=== PATIENT | female | born 1970 | race Caucasian/White ===

== ENCOUNTER 2017-07-22 17:05 | Observation (INO) | payer OTHER ==
[~2017-07-22] VITALS: Ht 170.2 cm; Wt 75.1 kg
[~2017-07-22 17:05] MED LIST: BIOT10TA PO; COLE1TAB PO; OMEP20TA93 PO; VITATAB43 PO
[2017-07-22 17:09] VITALS: BP 139/89; PULSE 97; RESP 24; TEMP 98.4; O2SAT 100
[2017-07-22] MEDS ORDERED: LIDOCAINE VISCOUS 2% SOLN 15 ML UDC PO ONE (17:15)
[2017-07-22] MEDS ORDERED: HYDROmorphone HCL PF 2 MG/ML VIAL IVS ONE (17:15)
[2017-07-22] MEDS ORDERED: SODIUM CHLOR 0.9% 1000 ML INJ 1,000 ML IV SCH (17:15)
[2017-07-22] MEDS ORDERED: ALUMINUM/MAGNESIUM/SIMETH 30 ML CUP PO ONE (17:15)
[2017-07-22] MEDS ORDERED: FAMOTIDINE 20 MG/2 ML VIAL IV PUSH ONE (17:15)
[2017-07-22] MEDS ORDERED: SODIUM CHLORIDE 0.9% FLUSH 10 ML FLUSH IV FLUSH PRN (17:15)
--- NOTE | 2017-07-22 17:18 | PD ---
HPI Chief Complaint: Abdominal Pain Time Seen by Provider: 17:13 Travel History International Travel<30 days: No Contact w/Intl Traveler<30days: No Traveled to known affect area: No History of Present Illness HPI 38-year-old female complains of epigastric abdominal pain since this morning, about 10 hours. Onset sudden. Patient has history of pancreatitis and believes the same today. She drank alcohol yesterday. Timing constant. Severe. It radiates to the back. It's worse with palpation. She denies fever. PFSH Past Medical History Hx Anticoagulant Therapy: No Diabetes: No Diminished Hearing: No Gastrointestinal Disorders: Yes (IBS) Pancreatitis: Yes ?: Unknown LMP: 06/20/2017 Past Surgical History Cholecystectomy: Yes Tonsillectomy: Yes Social History Alcohol Use: Yes (6PK OR MORE DAILY) Tobacco Use: Yes (1.5PPD) Substance Use: No Allergies-Medications (Allergen,Severity, Reaction): Coded Allergies: No Known Allergies (Unverified Adverse Reaction, Unknown, 07/22/17) Reported Meds & Prescriptions Reported Meds & Active Scripts Active Omeprazole 20 Mg Tab 20 Mg PO DAILY Reported Biotin 10 Mg Tab 10 Mg PO DAILY Vitamin [id number] Acid (Cobalamine Combinations) 500-400 Mcg Tab 1 Tab PO DAILY Colestid (Colestipol HCl) 1 Gm Tab 4 Gm PO BID Review of Systems Except as stated in HPI: all other systems reviewed are Neg General / Constitutional: No: Fever Physical Exam Narrative GENERAL: 46-year-old female pleasant well-nourished well-developed SKIN: Warm and dry. HEAD: Atraumatic. Normocephalic. EYES: Pupils equal and round. No scleral icterus. No injection or drainage. ENT: No nasal bleeding or discharge. Mucous membranes pink and moist. NECK: Trachea midline. No JVD. CARDIOVASCULAR: Regular rate and rhythm. RESPIRATORY: No accessory muscle use. Clear to auscultation. Breath sounds equal bilaterally. GASTROINTESTINAL: Soft. Diffuse nonspecific tenderness with guarding. MUSCULOSKELETAL: Extremities without clubbing, cyanosis, or edema. No obvious deformities. NEUROLOGICAL: Awake and alert. No obvious cranial nerve deficits. Motor grossly within normal limits. Five out of 5 muscle strength in the arms and legs. Normal speech. PSYCHIATRIC: Appropriate mood and affect; insight and judgment normal. Data Data Last Documented VS Vital Signs Date Time Temp Pulse Resp B/P (MAP) Pulse Ox O2 Delivery O2 Flow Rate FiO2 07/22/17 18:34 19 07/22/17 17:54 100 Room Air 07/22/17 17:09 98.4 97 139/89 (106) VS reviewed Orders Orders Complete Blood Count With Diff (07/22/17 17:15) Comprehensive Metabolic Panel (07/22/17 17:15) Lipase (07/22/17 17:15) Ct Abd/Pel W Iv Contrast(Rout) (07/22/17 17:15) Iv Access Insert/Monitor (07/22/17 17:15) Ecg Monitoring (07/22/17 17:15) Oximetry (07/22/17 17:15) Hydromorphone Pf Inj (Dilaudid Pf Inj) (07/22/17 17:15) Sodium Chlor 0.9% 1000 Ml Inj (Ns 1000 M (07/22/17 17:15) Sodium Chloride 0.9% Flush (Ns Flush) (07/22/17 17:15) Famotidine Inj (Pepcid Inj) (07/22/17 17:15) Al-Mag Hy-Si 40-40-4 Mg/Ml Liq (Mag-Al P (07/22/17 17:15) Lidocaine 2% Viscous (Xylocaine 2% Visco (07/22/17 17:15) Alcohol (Ethanol) (07/22/17 17:15) Hydromorphone Pf Inj (Dilaudid Pf Inj) (07/22/17 18:15) Iohexol 350 Inj (Omnipaque 350 Inj) (07/22/17 18:11) Admit Order (Ed Use Only) (07/22/17 ) Vital Signs (Adult) Q4H (07/22/17 18:45) Diet Npo (07/22/17 Dinner) Diet Heart Healthy (07/22/17 Dinner) Activity Bed Rest (07/22/17 18:45) Labs Laboratory Tests Test 07/22/17 17:30 White Blood Count 9.5 TH/MM3 Red Blood Count 4.32 MIL/MM3 Hemoglobin 10.2 GM/DL Hematocrit 32.9 % Mean Corpuscular Volume 76.2 FL Mean Corpuscular Hemoglobin 23.6 PG Mean Corpuscular Hemoglobin Concent 31.0 % Red Cell Distribution Width 16.4 % Platelet Count 403 TH/MM3 Mean Platelet Volume 7.8 FL Neutrophils (%) (Auto) 75.3 % Lymphocytes (%) (Auto) 16.3 % Monocytes (%) (Auto) 7.1 % Eosinophils (%) (Auto) 0.8 % Basophils (%) (Auto) 0.5 % Neutrophils # (Auto) 7.2 TH/MM3 Lymphocytes # (Auto) 1.5 TH/MM3 Monocytes # (Auto) 0.7 TH/MM3 Eosinophils # (Auto) 0.1 TH/MM3 Basophils # (Auto) 0.0 TH/MM3 CBC Comment AUTO DIFF Differential Comment AUTO DIFF CONFIRMED Platelet Estimate NORMAL Platelet Morphology Comment NORMAL Blood Urea Nitrogen 5 MG/DL Creatinine 0.78 MG/DL Random Glucose 99 MG/DL Total Protein 8.3 GM/DL Albumin 4.0 GM/DL Calcium Level 9.5 MG/DL Alkaline Phosphatase 99 U/L Aspartate Amino Transf (AST/SGOT) 33 U/L Alanine Aminotransferase (ALT/SGPT) 25 U/L Total Bilirubin 0.4 MG/DL Sodium Level 135 MEQ/L Potassium Level 4.3 MEQ/L Chloride Level 102 MEQ/L Carbon Dioxide Level 24.9 MEQ/L Anion Gap 8 MEQ/L Estimat Glomerular Filtration Rate 79 ML/MIN Lipase 1075 U/L Ethyl Alcohol Level LESS THAN 3 MG/DL MDM Medical Decision Making Medical Screen Exam Complete: Yes Emergency Medical Condition: Yes Medical Record Reviewed: Yes Differential Diagnosis Constipation, Gastritis, Acute Cholecystitis, Biliary Colic, Pancreatitis, HATHAWAY , Hepatitis, Bowel Obstruction, Cystitis, Mesenteric Ischemia, AAA, Appendicitis , Renal Stone/Hydronephrosis, GERD, perforated viscous Narrative Course CBC & BMP Diagram 07/22/17 17:30 Total Protein 8.3 H, Albumin 4.0, Calcium Level 9.5, Alkaline Phosphatase 99, Aspartate Amino Transf (AST/SGOT) 33, Alanine Aminotransferase (ALT/SGPT) 25, Total Bilirubin 0.4 EtOH 3 Last Impressions Abdomen/Pelvis CT 07/22/17 1039 Signed Impressions: Service Date/Time: Saturday, July 22, 2017 17:57 - CONCLUSION: 1. Intra- and extra hepatic biliary ductal dilatation with previous cholecystectomy. This appears unchanged. 2. Left adrenal nodule, unchanged likely lipid poor adenoma. 3. No acute inflammatory process. Jered Warner MD Admission for pain control, IVF, and antiemetics. Diagnosis Primary Impression: Pancreatitis Qualified Codes: K85.20 - Alcohol induced acute pancreatitis without necrosis or infection Admitting Information Admitting Physician Requests: Admit Amos Patel MD Jul 22, 2017 17:18
[2017-07-22 17:52] LABS: AUTOMATED NEUTROPHIL # 7.2 TH/MM3 (1.8-7.7); BASOPHIL % 0.5 % (0.0-2.0); EOSINOPHIL # 0.1 TH/MM3 (0-0.4); EOSINOPHIL % 0.8 % (0.0-4.0); HEMATOCRIT 32.9 % (35.0-46.0); HEMOGLOBIN 10.2 GM/DL (11.6-15.3); LYMPH % 16.3 % (9.0-44.0); LYMPHOCYTE # 1.5 TH/MM3 (1.0-4.8); MEAN CELL VOLUME 76.2 FL (80.0-100.0); MEAN CORPUSCULAR HEMOGLOBIN 23.6 PG (27.0-34.0); MEAN PLATELET VOLUME 7.8 FL (7.0-11.0); MONO % 7.1 % (0.0-8.0); MONOCYTE # 0.7 TH/MM3 (0-0.9); NEUT % 75.3 % (16.0-70.0); PLATELET COUNT 403 TH/MM3 (150-450); RED BLOOD COUNT 4.32 MIL/MM3 (4.00-5.30); RED CELL DISTRIBUTION WIDTH 16.4 % (11.6-17.2); WHITE BLOOD COUNT 9.5 TH/MM3 (4.0-11.0)
[2017-07-22 17:54] VITALS: RESP 22; O2SAT 100
[2017-07-22 17:59] LABS: CHLORIDE 102 MEQ/L (98-107); SODIUM (NA) 135 MEQ/L (136-145)
[2017-07-22 18:03] LABS: BICARBONATE 24.9 MEQ/L (21.0-32.0); BLOOD UREA NITROGEN 5 MG/DL (7-18); CALCIUM 9.5 MG/DL (8.5-10.1); GLUCOSE,RANDOM 99 MG/DL (74-106); LIPASE 1075 U/L (73-393)
[2017-07-22 18:06] LABS: ALT (GPT) 25 U/L (10-53); AST (GOT) 33 U/L (15-37); CREATININE 0.78 MG/DL (0.50-1.00); GLOMERULAR FILTRATION RATE 79 ML/MIN (>89)
[2017-07-22 18:07] LABS: TOTAL BILIRUBIN ADULT 0.4 MG/DL (0.2-1.0); TOTAL PROTEIN 8.3 GM/DL (6.4-8.2)
[2017-07-22 18:09] LABS: ALKALINE PHOSPHATASE 99 U/L (45-117)
[2017-07-22] MEDS ORDERED: IOHEXOL 350 MG/ML 10 ML VIAL (for RAD DIAG) IVCONTRAST ONE (18:11)
[2017-07-22] MEDS ORDERED: HYDROmorphone HCL PF 2 MG/ML VIAL IV PUSH ONE (18:15)
--- NOTE | 2017-07-22 18:18 | RADRPT ---
EXAM DATE/TIME: 07/22/2017 17:57 [facility] COMPARISON: CT ABDOMEN & PELVIS W CONTRAST, June 15, 2016, 17:28. INDICATIONS : Mid abdominal pain since this morning. IV CONTRAST: 100 cc Omnipaque 350 (iohexol) IV ORAL CONTRAST: No oral contrast ingested. RADIATION DOSE: 10.30 CTDIvol (mGy) MEDICAL HISTORY : Pancreatitis. Irritable bowel syndrome. SURGICAL HISTORY : Tonsillectomy. Cholecystectomy. ENCOUNTER: Initial ACUITY: 1 day PAIN SCALE: 10/10 LOCATION: middle abdomen TECHNIQUE: Volumetric scanning of the abdomen and pelvis was performed. Using automated exposure control and ad justment of the mA and/or kV according to patient size, radiation dose was kept as low as reasonably achievable to obtain optimal diagnostic quality images. DICOM format image data is available electro nically for review and comparison. FINDINGS: LOWER LUNGS: The visualized lower lungs are clear. LIVER: Homogeneous density without lesion. No calcified gallstones. Intra--and extra hepatic biliary ductal dilatation distal common bile duct measures 2.3 cm. Cholecystectomy. SPLEEN: Normal size without lesion. PANCREAS: Within normal limits. KIDNEYS: Normal in size and shape. There is no mass, stone or hydronephrosis. ADRENAL GLANDS: Right adrenal gland within normal limits. Left adrenal nodule again seen. VASCULAR: There is no aortic aneurysm. BOWEL/MESENTERY: The stomach and colon demonstrate no acute abnormality. Fluid filled small bowel loops without obstru ction. There is no free intraperitoneal air or fluid. ABDOMINAL WALL: Within normal limits. RETROPERITONEUM: There is no lymphadenopathy. BLADDER: No wall thickening or mass. REPRODUCTIVE: Heterogeneous appearing uterus. INGUINAL: There is no lymphadenopathy or hernia. MUSCULOSKELETAL: Within normal limits for patient age. CONCLUSION: 1. Intra-and extra hepatic biliary ductal dilatation with previous cholecystectomy. This appears unch anged. 2. Left adrenal nodule, unchanged likely lipid poor adenoma. 3. No acute inflammatory process. Jered Warner MD on July 22, 2017 at 18:12 Board Certified Radiologist. This report was verified electronically.
[2017-07-22 19:01] VITALS: BP 113/61; PULSE 67; RESP 16; O2SAT 99
[2017-07-22] MEDS ORDERED: KETOROLAC TROMETHAMINE 30 MG/ML (IVP) VIAL IVP PRN (19:15)
[2017-07-22] MEDS: LACTATED RINGER'S 1000 ML INJ 1,000 ML IV SCH (19:30)
[2017-07-22] MEDS: ENOXAPARIN SODIUM 40 MG/0.4 ML SYRINGE SQ SCH (19:30)
[2017-07-22] MEDS: ONDANSETRON HCL 4 MG/2 ML VIAL IV PUSH PRN (19:30)
[2017-07-22] MEDS: MORPHINE SULFATE 8 MG/ML INJ IV PUSH PRN ×2 (19:42→22:55)
[2017-07-22 19:45] VITALS: BP 109/61; TEMP 98.9
[2017-07-22 20:00] VITALS: BP 113/64; PULSE 71; RESP 20; TEMP 96.8; O2SAT 97
[2017-07-22] MEDS ORDERED: diphenhydrAMINE HCL 50 MG/ML VIAL IV PUSH ONE (20:00)
[2017-07-22] MEDS ORDERED: PROCHLORPERAZINE INJ 10 MG/2 ML VIAL IV PUSH ONE (20:00)
[2017-07-22] MEDS: SODIUM CHLORIDE 0.9% FLUSH 10 ML FLUSH IV FLUSH SCH (20:34)
[2017-07-23] VITALS: BP 121/81; PULSE 67; RESP 20; TEMP 96.2; O2SAT 98
[2017-07-23] MEDS: ONDANSETRON HCL 4 MG/2 ML VIAL IV PUSH PRN (01:46)
[2017-07-23] MEDS: MORPHINE SULFATE 8 MG/ML INJ IV PUSH PRN ×7 (01:47→21:03)
[2017-07-23] MEDS: LACTATED RINGER'S 1000 ML INJ 1,000 ML IV SCH ×3 (03:10→20:57)
[2017-07-23 08:00] VITALS: BP 110/59; PULSE 71; RESP 16; TEMP 96.7; O2SAT 95
--- NOTE | 2017-07-23 08:21 | HHI.HP ---
[facility] Service [facility] Primary Care Physician No Primary Care Physician Admission Diagnosis Pancreatitis Diagnoses: Chief Complaint: Abdominal pain Travel History International Travel<30 Days: No Contact w/Intl Traveler <30 Da: No Traveled to Known Affected Are: No History of Present Illness This patient is a 46-year-old female with a known history of chronic alcohol dependency was current with abdominal pain for 1 day. Pain is severe and rated 10 out of 10 and improved somewhat with morphine. She's had pancreatic eyes in the past and believes this is a same type of pain. It is in the abdomen radiating to the back worse with palpation. No fevers or chills. There has been some nausea and vomiting associated with it. Patient's been recommended for observation due to acute pancreatitis Review of Systems Constitutional: DENIES: Diaphoretic episodes, Fatigue, Fever, Weight gain, Weight loss, Chills, Dizziness, Change in appetite, Night Sweats Endocrine: DENIES: Abnorml menstrual pattern, Heat/cold intolerance, Polydipsia , Polyuria, Polyphagia Eyes: DENIES: Blurred vision, Diplopia, Eye inflammation, Eye pain, Vision loss , Photosensitivity, Double Vision Ears, nose, mouth, throat: DENIES: Tinnitus, Hearing loss, Vertigo, Nasal discharge, Oral lesions, Throat pain, Hoarseness, Ear Pain, Running Nose, Epistaxis, Sinus Pain, Toothache, Odynophagia Respiratory: DENIES: Apneas, Cough, Snoring, Wheezing, Hemoptysis, Sputum production, Shortness of breath Cardiovascular: DENIES: Chest pain, Palpitations, Syncope, Dyspnea on Exertion , PND, Lower Extremity Edema, Orthopnea, Claudication Gastrointestinal: COMPLAINS OF: Abdominal pain, Diarrhea, Nausea, Vomiting, DENIES: Black stools, Bloody stools, Constipation, Difficulty Swallowing, Anorexia Genitourinary: DENIES: Abnormal vaginal bleeding, Dysmenorrhea, Dyspareunia, Sexual dysfunction, Urinary frequency, Urinary incontinence, Urgency, Hematuria , Dysuria, Nocturia, Vaginal discharge Musculoskeletal: DENIES: Joint pain, Muscle aches, Stiffness, Joint Swelling, Back pain, Neck pain Integumentary: DENIES: Abnormal pigmentation, Pruritus, Rash, Nail changes, Breast masses, Breast skin changes, Nipple discharge Hematologic/lymphatic: DENIES: Bruising, Lymphadenopathy Immunologic/allergic: DENIES: Eczema, Urticaria Neurologic: DENIES: Abnormal gait, Headache, Localized weakness, Paresthesias, Seizures, Speech Problems, Tremor, Poor Balance Psychiatric: DENIES: Anxiety, Confusion, Mood changes, Depression, Hallucinations, Agitation, Suicidal Ideation, Homicidal Ideation, Delusions Except as stated in HPI: all other systems reviewed are Neg Past Family Social History Past Medical History Pancreatitis Irritable bowel syndrome Past Surgical History Gallbladder Reported Medications Reviewed in the EMR, patient takes B-12, Imodium, ibuprofen and biotin Allergies: Coded Allergies: No Known Allergies (Unverified Allergy, Unknown, 07/22/17) Active Ordered Medications Reviewed in the EMR Family History Father's history unknown, mother had lung cancer and from the Social History At least a sixpack of beer daily, 1-1/2 packs echo weekly, lives with her Physical Exam Vital Signs Vital Signs Date Time Temp Pulse Resp B/P (MAP) Pulse Ox O2 Delivery O2 Flow Rate FiO2 07/23/17 00:00 96.2 67 20 121/81 (94) 98 07/22/17 20:00 96.8 71 20 113/64 (80) 97 07/22/17 19:52 20 07/22/17 19:45 98.9 77 20 109/61 (77) 98 07/22/17 19:01 67 16 113/61 (78) 99 Room Air 07/22/17 18:56 16 07/22/17 18:34 19 07/22/17 17:54 22 100 Room Air 07/22/17 17:09 98.4 97 24 139/89 (106) 100 Physical Exam GENERAL: This is a well-nourished, well-developed patient, coughing, complaining of belly pain, appears much older than stated age. SKIN: No rashes, ecchymoses or lesions. Cool and dry. HEAD: Atraumatic. Normocephalic. No temporal or scalp tenderness. EYES: Pupils equal round and reactive. Extraocular motions intact. No scleral icterus. No injection or drainage. ENT: Nose without bleeding, purulent drainage or septal hematoma. Throat without erythema, tonsillar hypertrophy or exudate. Uvula midline. Airway patent. NECK: Trachea midline. No JVD or lymphadenopathy. Supple, nontender, no meningeal signs. CARDIOVASCULAR: Regular rate and rhythm without murmurs, gallops, or rubs. RESPIRATORY: Clear to auscultation. Breath sounds equal bilaterally. No wheezes , rales, or rhonchi. GASTROINTESTINAL: Abdomen soft, non-tender, nondistended. No hepato-splenomegaly , or palpable masses. No guarding. MUSCULOSKELETAL: Extremities without clubbing, cyanosis, or edema. No joint tenderness, effusion, or edema noted. No calf tenderness. Negative Homans sign bilaterally. NEUROLOGICAL: Awake and alert. Cranial nerves II through XII intact. Motor and sensory grossly within normal limits. Five out of 5 muscle strength in all muscle groups. Normal speech. Laboratory Laboratory Tests Test 07/22/17 17:30 07/23/17 07:05 White Blood Count 9.5 Red Blood Count 4.32 Hemoglobin 10.2 Hematocrit 32.9 Mean Corpuscular Volume 76.2 Mean Corpuscular Hemoglobin 23.6 Mean Corpuscular Hemoglobin Concent 31.0 Red Cell Distribution Width 16.4 Platelet Count 403 Mean Platelet Volume 7.8 Neutrophils (%) (Auto) 75.3 Lymphocytes (%) (Auto) 16.3 Monocytes (%) (Auto) 7.1 Eosinophils (%) (Auto) 0.8 Basophils (%) (Auto) 0.5 Neutrophils # (Auto) 7.2 Lymphocytes # (Auto) 1.5 Monocytes # (Auto) 0.7 Eosinophils # (Auto) 0.1 Basophils # (Auto) 0.0 CBC Comment AUTO DIFF Differential Comment AUTO DIFF CONFIRMED Platelet Estimate NORMAL Platelet Morphology Comment NORMAL Blood Urea Nitrogen 5 Creatinine 0.78 Random Glucose 99 Total Protein 8.3 Albumin 4.0 Calcium Level 9.5 Alkaline Phosphatase 99 Aspartate Amino Transf (AST/SGOT) 33 Alanine Aminotransferase (ALT/SGPT) 25 Total Bilirubin 0.4 Sodium Level 135 Potassium Level 4.3 Chloride Level 102 Carbon Dioxide Level 24.9 Anion Gap 8 Estimat Glomerular Filtration Rate 79 Lipase 1075 834 Ethyl Alcohol Level LESS THAN 3 Result Diagram: 07/22/17 1730 07/22/17 1730 Imaging Last Impressions Abdomen/Pelvis CT 07/22/17 4995 Signed Impressions: Service Date/Time: Saturday, July 22, 2017 17:57 - CONCLUSION: 1. Intra- and extra hepatic biliary ductal dilatation with previous cholecystectomy. This appears unchanged. 2. Left adrenal nodule, unchanged likely lipid poor adenoma. 3. No acute inflammatory process. Jered Warner MD Assessment and Plan Problem List: (1) Pancreatitis ICD Code: K85.90 - Acute pancreatitis without necrosis or infection, unspecified Status: Acute Plan: We'll add Protonix We will continue with supportive care with fluids and antiemetics Patient is about to discontinue alcohol Clear diet Problem Qualifiers (1) Pancreatitis: Qualified Codes: K85.20 - Alcohol induced acute pancreatitis without necrosis or infection Shira Cavanaugh MD Jul 23, 2017 08:20
[2017-07-23] MEDS: SODIUM CHLORIDE 0.9% FLUSH 10 ML FLUSH IV FLUSH SCH ×2 (08:22→20:58)
[2017-07-23] MEDS: PANTOPRAZOLE SODIUM 40 MG VIAL IV PUSH SCH (09:29)
[2017-07-23] MEDS: PROMETHAZINE HCL 25 MG TAB PO SCH ×3 (09:29→20:58)
[2017-07-23 12:00] VITALS: BP 116/72; PULSE 64; RESP 16; TEMP 96.7; O2SAT 97
[2017-07-23 16:00] VITALS: BP 152/71; PULSE 93; RESP 20; TEMP 96; O2SAT 98
[2017-07-23 20:00] VITALS: BP 114/63; PULSE 70; RESP 16; TEMP 98.3; O2SAT 99
[2017-07-23] MEDS: ENOXAPARIN SODIUM 40 MG/0.4 ML SYRINGE SQ SCH (20:00)
[2017-07-23] MEDS: SODIUM CHLORIDE 0.9% FLUSH 10 ML FLUSH IV FLUSH PRN (21:03)
[2017-07-24] VITALS: BP 128/59; PULSE 72; RESP 16; TEMP 98.6; O2SAT 99
[2017-07-24] MEDS: SODIUM CHLORIDE 0.9% FLUSH 10 ML FLUSH IV FLUSH PRN ×3 (00:05→06:25)
[2017-07-24] MEDS: MORPHINE SULFATE 8 MG/ML INJ IV PUSH PRN ×4 (00:05→09:22)
[2017-07-24] MEDS: PROMETHAZINE HCL 25 MG TAB PO SCH ×2 (03:13→09:11)
[2017-07-24] MEDS: LACTATED RINGER'S 1000 ML INJ 1,000 ML IV SCH (03:14)
[2017-07-24 08:00] VITALS: BP 150/64; PULSE 65; RESP 17; TEMP 98.1; O2SAT 100
[2017-07-24] MEDS: SODIUM CHLORIDE 0.9% FLUSH 10 ML FLUSH IV FLUSH SCH (08:03)
[2017-07-24] MEDS: PANTOPRAZOLE SODIUM 40 MG VIAL IV PUSH SCH (09:11)
--- NOTE | 2017-07-24 10:17 | HHI.PR ---
Subjective Remarks In no acute distress. Says she is not associated signs and did not vomit. Abdominal pain currently she is tolerating clear liquid diets and wants to try liquid diet. Feels comfortable to go home today. Denies fever or chills no nausea or vomiting no diarrhea or constipation. No tremors or seizures. Objective Vitals Vital Signs Date Time Temp Pulse Resp B/P (MAP) Pulse Ox O2 Delivery O2 Flow Rate FiO2 07/24/17 08:00 98.1 65 17 150/64 (92) 100 07/24/17 00:00 98.6 72 16 128/59 (82) 99 07/23/17 20:00 98.3 70 16 114/63 (80) 99 07/23/17 18:05 17 07/23/17 16:00 96.0 93 20 152/71 (98) 98 07/23/17 12:00 96.7 64 16 116/72 (87) 97 I/O 07/23/17 07/23/17 07/23/17 07/24/17 07/24/17 07/24/17 07:00 15:00 23:00 07:00 15:00 23:00 Intake Total 1282 ml 1976 ml Balance 1282 ml 1976 ml Intake Oral 0 ml 480 ml IV Total 1282 ml 1496 ml # Voids 2 1 Result Diagram: 07/22/17 1730 07/22/17 1730 Imaging Last Impressions Abdomen/Pelvis CT 07/22/17 1715 Signed Impressions: Service Date/Time: Saturday, July 22, 2017 17:57 - CONCLUSION: 1. Intra- and extra hepatic biliary ductal dilatation with previous cholecystectomy. This appears unchanged. 2. Left adrenal nodule, unchanged likely lipid poor adenoma. 3. No acute inflammatory process. Jered Warner MD Objective Remarks GENERAL: This is a well-nourished, well-developed patient, appears in nad. CARDIOVASCULAR: Regular rate and rhythm without murmurs, gallops, or rubs. RESPIRATORY: Clear to auscultation. Breath sounds equal bilaterally. No wheezes , rales, or rhonchi. GASTROINTESTINAL: Abdomen soft, non-tender, nondistended. No hepato-splenomegaly , or palpable masses. No guarding. MUSCULOSKELETAL: Extremities without clubbing, cyanosis, or edema. No joint tenderness, effusion, or edema noted. No calf tenderness. Negative Homans sign bilaterally. NEUROLOGICAL: Awake and alert. Cranial nerves II through XII intact. Motor and sensory grossly within normal limits. Five out of 5 muscle strength in all muscle groups. Normal speech. A/P Problem List: (1) Pancreatitis ICD Code: K85.90 - Acute pancreatitis without necrosis or infection, unspecified Status: Acute Assessment and Plan (1) Pancreatitis ICD Code: K85.90 - Acute pancreatitis without necrosis or infection, unspecified Status: Acute Plan: Protonix Continue with supportive care with fluids and antiemetics Patient is about to discontinue alcohol, counselled extensively Advance diet to full liquid diet Lipase is improving. Poss DC later today if tolerates food. Discharge Planning Tolerated diet DC home in stable condition to follow up as OP with PCP and consultants Activity ad ko as tolerated Diet regular as tolerated Meds per med reconciliations Time at DC > 30 min Problem Qualifiers (1) Pancreatitis: Qualified Codes: K85.20 - Alcohol induced acute pancreatitis without necrosis or infection Capri Greenberg MD Jul 24, 2017 10:17
[2017-07-24] MEDS ORDERED: PROM25TA10 PO (10:19)
[2017-07-24] MEDS ORDERED: PROT40TA PO (10:19)
--- NOTE | 2017-07-24 10:19 | HHI.DCPOC ---
Discharge Care Plan Goals to Promote Your Health * To prevent worsening of your condition and complications * To maintain your health at the optimal level Directions to Meet Your Goals Take your medications as prescribed Follow your dietary instruction Follow activity as directed Keep your appointments as scheduled Take your immunizations and boosters as scheduled If your symptoms worsen call your PCP, if no PCP go to Urgent Care Center or Emergency Room Smoking is Dangerous to Your Health. Avoid second hand smoke Call the 24-hour hour crisis hotline for domestic abuse at Capri Greenberg MD Jul 24, 2017 10:19
== END 2017-07-24 13:24 | disposition home or self-care (01) ==
LOC: PHED 17:05 → PHEDA 18:47 → PH3A 20:25
PROVIDERS: ADMIT Hospitalist; ATTEND Hospitalist
DX: K85.20 Alcohol induced acute pancreatitis without necrosis or infection (principal); K58.9 Irritable bowel syndrome, unspecified; F17.210 Nicotine dependence, cigarettes, uncomplicated; Z79.899 Other long term (current) drug therapy; E27.8 Other specified disorders of adrenal gland; F10.20 Alcohol dependence, uncomplicated
CPT/HCPCS: 74177; 80053; 80307; 83690; 85025; 96361; 96372; 96374; 96375; 96376; 99285; C9113; G0378; J0780; J1170; J1200; J1650; J2270; J2405; J7030; J7120; Q0169; Q9967